=== PATIENT | female | born 1960 | race Caucasian/White ===

== ENCOUNTER 2017-06-04 11:04 | Outpatient (CLI) | payer OTHER ==
[~2017-06-04 11:04] MED LIST: TUSSIONEX PENNKI5 ML PO
== END 2017-06-04 11:13 | disposition home or self-care (01) ==
LOC: SONOGRAMA 11:04
DX: E04.1 Nontoxic single thyroid nodule (principal)

== ENCOUNTER 2018-06-17 11:30 | Outpatient (CLI) | payer OTHER | END 2018-06-17 11:32 | disposition home or self-care (01) | LOC: SONOGRAMA 11:30 | DX: E04.1 Nontoxic single thyroid nodule (principal) ==

== ENCOUNTER 2018-06-24 12:55 | Outpatient (CLI) | payer OTHER ==
[~2018-06-24] VITALS: Ht 170.2 cm; Wt 78.9 kg
== END 2018-06-24 13:10 | disposition home or self-care (01) ==
LOC: OFIC 805 12:55
DX: E04.1 Nontoxic single thyroid nodule (principal); R13.10 Dysphagia, unspecified

== ENCOUNTER 2018-07-19 11:05 | Outpatient (CLI) | payer OTHER | END 2018-07-19 14:12 | disposition home or self-care (01) | LOC: RX STUDY 11:05 | DX: K21.0 Gastro-esophageal reflux disease with esophagitis (principal); R13.10 Dysphagia, unspecified ==

== ENCOUNTER 2018-07-29 14:43 | Outpatient (CLI) | payer OTHER ==
[~2018-07-29] VITALS: Ht 152.4 cm; Wt 77.1 kg
== END 2018-07-29 15:00 | disposition home or self-care (01) ==
LOC: OFIC 805 14:43
DX: E04.1 Nontoxic single thyroid nodule (principal); R13.19 Other dysphagia

== ENCOUNTER 2019-06-07 11:22 | Outpatient (CLI) | payer OTHER | END 2019-06-07 11:38 | disposition home or self-care (01) | LOC: SONOGRAMA 11:22 | DX: M25.512 Pain in left shoulder (principal) ==